=== PATIENT | male | born 1995 ===

== ENCOUNTER 2016-12-08 13:39 | Emergency (ER) | payer MEDICAID ==
[2016-12-08 13:51] VITALS: BP 128/74; PULSE 72; RESP 16; TEMP 98.5; O2SAT 100
[2016-12-08] MEDS ORDERED: Clindamycin 600 MG in Sodium Chloride 0.9% 100 ML IVPB STA (14:10)
--- NOTE | 2016-12-08 14:12 | ED PDOC ---
HPI: Dental Pain/Injury Time Seen by Provider: 12/08/16 13:59 Chief Complaint (Nursing): Dental Pain Chief Complaint (Provider): Dental Pain History Per: Patient History/Exam Limitations: no limitations Onset/Duration Of Symptoms: Days (x 3 days) Current Symptoms Are (Timing): Still Present Additional Complaint(s): Malcolm Newell is a 21-year-old male who presents to the emergency department complaining of right facial swelling and dental pain, ongoing for the past 3 days. Patient denies fever and chills. Patient describes feeling the crown on his right lower molar "come loose" on Tuesday (12/06/16) and yesterday he had increased right facial swelling and pain, which worsened today. Patient states self-medicating with Amoxicillin, prescribed some time ago. PMD: Efrain Page MD Past Medical History Reviewed: Historical Data, Nursing Documentation, Vital Signs Vital Signs: Last Vital Signs Temp 98.5 F 12/08/16 13:48 Pulse 72 12/08/16 13:48 Resp 16 12/08/16 13:48 BP 128/74 12/08/16 13:48 Pulse Ox 100 12/08/16 13:48 - Medical History PMH: No Chronic Diseases - Surgical History Surgical History: No Surg Hx - Family History Family History: States: Unknown Family Hx - Home Medications Home Medications: Ambulatory Orders Medication Instructions Recorded Clindamycin [Cleocin] 300 mg PO QID #40 cap 12/08/16 Ibuprofen [Motrin Tab] 800 mg PO Q6H PRN #20 tab 12/08/16 - Allergies Allergies/Adverse Reactions: Allergies Allergy/AdvReac Type Severity Reaction Status Date / Time No Known Allergies Allergy Verified 12/08/16 13:47 Review of Systems ROS Statement: Except As Marked, All Systems Reviewed And Found Negative Constitutional: Negative for: Fever, Chills ENT: Positive for: Mouth Pain (Right lower dental pain), Mouth Swelling, Other ( Right lower facial swelling) Physical Exam - Reviewed Nursing Documentation Reviewed: Yes Vital Signs Reviewed: Yes - Physical Exam Appears: Positive for: Non-toxic, No Acute Distress Head Exam: Positive for: ATRAUMATIC, NORMAL INSPECTION, NORMOCEPHALIC Skin: Positive for: Normal Color, Warm, Dry Eye Exam: Positive for: Normal appearance ENT: Positive for: Other (Right lower facial edema and tenderness on palpation, without erythema. No discrete abscess formation). Negative for: Normal ENT Inspection Neck: Positive for: Normal, Painless ROM, Supple Back: Positive for: Normal Inspection. Negative for: Vertebral Tenderness Extremity: Positive for: Normal ROM. Negative for: Deformity Neurologic/Psych: Positive for: Alert, Oriented - Laboratory Results Result Diagrams: 12/08/16 14:25 12/08/16 14:25 - ECG O2 Sat by Pulse Oximetry: 100 (RA) Pulse Ox Interpretation: Normal Medical Decision Making Medical Decision Making: Time: 14:15 Initial Impression: Right facial edema Initial Plan: --CMP --CBC w differential --Clindamycin 600 mg/NS 50mL IV --Pending disposition Pt sleeping in NAD in ER. When he awakes upon discharge patient asks for pain medications. Scribe Attestation: Documented by Sheryl Norton, acting as a scribe for Siri Craft PA-C Provider Scribe Attestation: All medical record entries made by the Scribe were at my direction and personally dictated by me. I have reviewed the chart and agree that the record accurately reflects my personal performance of the history, physical exam, medical decision making, and the department course for this patient. I have also personally directed, reviewed, and agree with the discharge instructions and disposition. Disposition - Clinical Impression Clinical Impression: Dental infection - Patient ED Disposition Is Patient to be Admitted: No - Disposition Disposition: Routine/Home Disposition Time: 16:06 Condition: GOOD Additional Instructions: Please follow-up with dentist. Prescriptions: Clindamycin [Cleocin] 300 mg PO QID #40 cap Ibuprofen [Motrin Tab] 800 mg PO Q6H PRN #20 tab PRN Reason: Pain Instructions: Dental Caries (ED)
[2016-12-08 14:32] LABS: BASO # 0.1 K/uL (0.0-0.2); BASO % 0.4 % (0.0-2.0); EOS # 0.3 K/uL (0.0-0.7); EOS % 2.3 % (0.0-4.0); HEMOGLOBIN 15.2 g/dL (12.0-18.0); LYMPH # 2.7 K/uL (1.0-4.3); LYMPH % 20.5 % (20.0-40.0); MEAN CELL VOLUME 80.9 fl (80.0-94.0); MEAN CORPUSCULAR HEMOGLOBIN 26.9 pg (27.0-31.0); MEAN CORPUSCULAR HGB CONC 33.3 g/dL (33.0-37.0); MEAN PLATELET VOLUME 8.4 fl (7.2-11.7); MONO # 1.2 K/uL (0.0-0.8); NEUT % 67.8 % (50.0-75.0); NRBC % 0.1 % (0.0-0.0); RBC 5.62 Mil/uL (4.40-5.90); RED CELL DISTRIBUTION WIDTH 13.7 % (11.5-14.5); WHITE BLOOD COUNT 13.3 K/uL (4.8-10.8)
[2016-12-08 14:46] LABS: ALB/GLOB RATIO 1.3 (1.0-2.1); ALBUMIN 4.4 g/dL (3.5-5.0); ALT/SGPT 53 U/L (21-72); AST/SGOT 32 U/L (17-59); BLOOD UREA NITROGEN 10 mg/dl (9-20); CALCIUM 9.2 mg/dL (8.4-10.2); GFR AFRICAN-AMERICAN > 60; GFR NON-AFRICAN AMERICAN > 60
== END 2016-12-08 16:24 | disposition home or self-care (01) ==
LOC: H.ER 13:39
DX: K04.7 Periapical abscess without sinus (principal)